=== PATIENT | female | born 1970 | race Caucasian/White ===

== ENCOUNTER → 2017-05-08 | Outpatient (CLI) | payer BC ==
--- NOTE | 2017-05-11 10:54 | MM ---
Reason for exam: screening (asymptomatic). Last mammogram was performed 4 years and 5 months ago. History: Patient is nulliparous. Family history of breast cancer in grandmother and breast cancer in 2 aunts. Physical Findings: A clinical breast exam by your physician is recommended on an annual basis and results should be correlated with mammographic findings. MG 3D Screening Mammo W/Cad Bilateral CC and MLO view(s) were taken. Prior study comparison: November 25, 2012, bilateral digital screening mammo w/CAD. June 02, 2011, bilateral digital screening mammo w/CAD. There are scattered fibroglandular densities. No significant changes when compared with prior studies. ASSESSMENT: Negative, BI-RAD 1 RECOMMENDATION: Routine screening mammogram of both breasts in 1 year.
== END | disposition home or self-care (01) ==
LOC: RADMAMWWP 16:28
PROVIDERS: ATTEND Obstetrics & Gynecology
DX: Z12.31 Encounter for screening mammogram for malignant neoplasm of breast (principal)
CPT/HCPCS: 77063; 77067

== ENCOUNTER → 2017-06-05 | Outpatient (CLI) | payer BC ==
--- NOTE | 2017-06-05 11:59 | XR ---
EXAMINATION TYPE: XR knee complete RT DATE OF EXAM: 06/05/2017 CLINICAL HISTORY: pain TECHNIQUE: Three views of the right knee are obtained. COMPARISON: None. FINDINGS: There is no acute fracture/dislocation. The tri-compartment joint spaces appear within no rmal limits. The overlying soft tissue appears unremarkable. IMPRESSION: There is no acute fracture or dislocation.ICD 10 NO FRACTURE, INITIAL EVALUATION
== END | disposition home or self-care (01) ==
LOC: RADXRMAIN 11:24
PROVIDERS: ATTEND Family Medicine
DX: M17.11 Unilateral primary osteoarthritis, right knee (principal)

== ENCOUNTER → 2020-05-14 | Outpatient (CLI) | payer BC ==
--- NOTE | 2020-05-14 11:42 | XR ---
EXAMINATION TYPE: XR lumbar spine 2 or 3V DATE OF EXAM: 05/14/2020 CLINICAL HISTORY: pain TECHNIQUE: Three views of the lumbar spine are submitted. COMPARISON: None. FINDINGS: There are 5 lumbar type vertebral bodies identified. The lumbar spine shows satisfactory alignment w ithout evidence of acute fracture or dislocation. Vertebral body heights are within normal limits. Moderate degenerative disc space narrowing L3-4 through L5-S1 with ventral spondylosis. Severe facet joint arthropathy. The overlying soft tissue appears unremarkable. IMPRESSION: No acute fracture or dislocation is seen in the lumbar spine. ICD 10 NO FRACTURE, INITIAL EVALUATION
--- NOTE | 2020-05-14 11:43 | XR ---
EXAMINATION TYPE: XR Hip Bilateral Complete DATE OF EXAM: 05/14/2020 CLINICAL HISTORY: pain TECHNIQUE: AP and frogleg views of the bilateral hips COMPARISON: None. FINDINGS: There is no acute fracture/dislocation evident. The joint space appears mildly narrowed right greater than left. Acetabular spur formation is noted on the right. The overlying soft tissue a ppears unremarkable. IMPRESSION: 1. There is no acute fracture or dislocation. ICD 10 NO FRACTURE, INITIAL EVALUATION
== END | disposition home or self-care (01) ==
LOC: RADXRMAIN 10:47
PROVIDERS: ATTEND Family Medicine
DX: M54.5 Low back pain (principal)
CPT/HCPCS: 72100; 73521

== ENCOUNTER → 2020-07-23 | Outpatient (CLI) | payer BC ==
--- NOTE | 2020-07-25 14:58 | MM ---
Reason for exam: screening (asymptomatic). Last mammogram was performed 3 years and 2 months ago. History: Patient is nulliparous. Family history of breast cancer in grandmother and breast cancer in 2 aunts. Physical Findings: A clinical breast exam by your physician is recommended on an annual basis and results should be correlated with mammographic findings. MG 3D Screening Mammo W/Cad Bilateral CC and MLO view(s) were taken. Prior study comparison: May 08, 2017, bilateral MG 3d screening mammo w/cad. November 25, 2012, bilateral digital screening mammo w/CAD. The breast tissue is almost entirely fat. No significant changes when compared with prior studies. ASSESSMENT: Benign, BI-RAD 2 RECOMMENDATION: Routine screening mammogram of both breasts in 1 year.
== END | disposition home or self-care (01) ==
LOC: RADMAMWWP 15:46
PROVIDERS: ATTEND Obstetrics & Gynecology
DX: Z12.31 Encounter for screening mammogram for malignant neoplasm of breast (principal); Z80.3 Family history of malignant neoplasm of breast
CPT/HCPCS: 77063; 77067

== ENCOUNTER → 2023-10-23 | Outpatient (CLI) | payer BC ==
--- NOTE | 2023-10-24 08:24 | XR ---
EXAMINATION TYPE: XR foot complete LT DATE OF EXAM: 10/23/2023 4:47 PM CLINICAL INDICATION: Female, 53 years old with history of M79.672 XR LT HEEL; [facility] COMPARISON: None TECHNIQUE: XR foot complete LT examined in the AP, oblique, and lateral projections. FINDINGS: No evidence of any acute osseous pathology. Calcaneal plantar spurring is present. Accessory ossicles are present. IMPRESSION: 1. Calcaneal plantar spurring. 2. No evidence of acute fracture. 3. Multifocal degeneration changes throughout the joints of the foot.
== END | disposition home or self-care (01) ==
LOC: RADXRMAIN 16:13
PROVIDERS: ATTEND Family Medicine
DX: M79.672 Pain in left foot

== ENCOUNTER → 2024-05-27 | Outpatient (CLI) | payer BC ==
--- NOTE | 2024-05-30 08:14 | MM ---
Reason for Exam: Screening (asymptomatic). Last mammogram was performed 1 year(s) and 7 month(s) ago. Patient History: Menarche at age 10. Patient has no children. Postmenopausal. Maternal grandmother had breast cancer. Maternal aunt had breast cancer. Maternal aunt had breast cancer. Father had breast cancer, age 74. Risk Values: Dana 5 year model risk: 1.4%. NCI Lifetime model risk: 10.1%. Prior Study Comparison: 05/08/2017 Bilateral Screening Mammogram, [facility]. 07/23/2020 Bilateral Screening Mammogram, [facility]. 11/03/2022 Bilateral MG 3D screening mammo w/cad, [facility]. Tissue Density: There are scattered areas of fibroglandular density. Findings: Analyzed By CAD. There is no suspicious group of microcalcifications or new suspicious mass in either breast. Overall Assessment: Negative, BI-RAD 1 Management: Screening Mammogram of both breasts in 6 months. . Patient should continue monthly self-breast exams. A clinical breast exam by your physician is recommended on an annual basis. This exam should not preclude additional follow-up of suspicious palpable abnormalities. Note on Dana scores and lifetime risk: 1. A Dana score greater than 3% is considered moderate risk. If this is the case, consider specialist referral to assess eligibility for a risk reducing agent. 2. If overall lifetime risk for the development of breast cancer is 20% or higher, the patient may qualify for future screening with alternating mammogram and breast MRI. [facility], , 05/30/2024 8:11 AM. Electronically signed and approved by: Layton Kerr M.D. [facility]
== END | disposition home or self-care (01) ==
LOC: RADMAMWWP 15:45
PROVIDERS: ATTEND Obstetrics & Gynecology
DX: Z12.31 Encounter for screening mammogram for malignant neoplasm of breast (principal); R92.323 Mammographic fibroglandular density, bilateral breasts; Z78.0 Asymptomatic menopausal state; Z80.3 Family history of malignant neoplasm of breast
CPT/HCPCS: 77063; 77067